=== PATIENT | female | born 1955 | race Caucasian/White ===

== ENCOUNTER → 2018-03-10 | Outpatient (CLI) | payer OTHER ==
--- NOTE | 2018-03-19 08:20 | Diagnostic Imaging Report ---
#[id number] - MGSCRBIL #BILATERAL DIGITAL SCREENING MAMMOGRAM WITH CAD: 03/10/2018 CLINICAL: Routine screening. No prior exams were available for comparison. Current study contains 7 films. The tissue of both breasts is predominantly fatty. Current study was also evaluated with a Computer Aided Detection (CAD) system. There is a possible oval mass in the left breast at 12 o'clock anterior depth. This is highlighted by CAD analysis on the CC view. Bengin calcifications in both breast are noted. Scar marker on the right breast. No other significant masses, calcifications, or other findings are seen in either breast. IMPRESSION: INCOMPLETE: NEEDS ADDITIONAL IMAGING EVALUATION The possible oval mass in the left breast is indeterminate. Additional views with possible ultrasound are recommended. The patient will be contacted by the Mammography Department to schedule this appointment. Manuel Silveira Jr., D.O. cw/:03/18/2018 10:46:18 Residential Program Worker: Dorina VILLEGAS)(Gustavo), [facility] letter sent: Additional Imaging Needed Mammogram BI-RADS: 0 Indeterminate
== END ==
LOC: MAMMO 13:34
PROVIDERS: ATTEND Internal Medicine
DX: Z12.31 Encounter for screening mammogram for malignant neoplasm of breast (principal)
CPT/HCPCS: 77067

== ENCOUNTER → 2018-05-19 | Outpatient (CLI) | payer MEDICARE, OTHER ==
--- NOTE | 2018-05-20 08:47 | Diagnostic Imaging Report ---
#[id number] - MGDXLT #UNILATERAL LEFT DIGITAL DIAGNOSTIC MAMMOGRAM WITH SPOT COMPRESSION: 05/19/2018 Comparison is made to exam dated: 03/10/2018 mammogram - [facility]. The tissue of the left breast is predominantly fatty. No significant masses, calcifications, or other findings are seen in the breast. Small irregular nodule in the left breast at the 12 o'clock position resembles a lymph node and is probably benign. Focused ultrasound did not demonstrate an associated abnormality. IMPRESSION: PROBABLY BENIGN A follow-up mammogram in 6 months is recommended to demonstrate stability. The patient was notified of the need for followup mammogram. Manuel Silveira Jr., D.O. cw/:05/19/2018 16:31:36 Sales Person: Dorina DUCKWORTH(Lavonne)(M), [facility] letter sent: Followup Recommended Mammogram BI-RADS: 3 Probably benign
--- NOTE | 2018-05-20 08:47 | Diagnostic Imaging Report ---
#[id number] - USBRELIMLT ULTRASOUND OF THE LEFT BREAST : 05/19/2018 Comparison is made to exams dated: 05/19/2018 mammogram and 03/10/2018 mammogram - [facility]. Color flow and real-time ultrasound were performed on the left breast. No lymph node, cyst or mass that would correspond to the mammographic finding was identified while scanning from 9 to 3 o'clock. IMPRESSION: PROBABLY BENIGN - FOLLOW-UP RECOMMENDED A follow-up mammogram in 6 months is recommended to demonstrate stability. The patient has been or will be contacted. Manuel Silveira Jr., D.O. cw/:05/19/2018 16:28:57 Rn Lvn: Loretta Hernandez RDMS, [facility] letter sent: Followup Recommended Ultrasound BI-RADS: 3 Probably benign
== END ==
LOC: MAMMO 14:53
PROVIDERS: ATTEND Internal Medicine
DX: N63.20 Unspecified lump in the left breast, unspecified quadrant (principal)

== ENCOUNTER → 2018-12-22 | Outpatient (CLI) | payer MEDICARE, OTHER ==
--- NOTE | 2018-12-23 09:13 | Diagnostic Imaging Report ---
#[id number] - MGDXBIL #BILATERAL DIGITAL DIAGNOSTIC MAMMOGRAM WITH CAD SHORT-TERM FOLLOW-UP: 12/22/2018 Comparison is made to exams dated: 05/19/2018 ultrasound, 05/19/2018 mammogram and 03/10/2018 mammogram - [facility]. Current study contains 8 films. The tissue of both breasts is predominantly fatty. Current study was also evaluated with a Computer Aided Detection (CAD) system. There is a stable 8 mm density in the left breast at 12 o'clock anterior depth. No other significant masses, calcifications, or other findings are seen in either breast. IMPRESSION: PROBABLY BENIGN The stable 8 mm density in the left breast is probably benign. A follow-up mammogram in 6 months is recommended to demonstrate stability. The patient has been or will be notified of the results. CLARE DIAS M.D. ct/penrad:12/22/2018 16:11:37 Spare Person: Dorina DUCKWORTH(Lavonne)(Gustavo), [facility] letter sent: Followup Recommended Mammogram BI-RADS: 3 Probably benign
--- NOTE | 2018-12-23 09:13 | Diagnostic Imaging Report ---
#[id number] - USBRELIMLT ULTRASOUND OF THE LEFT BREAST : 12/22/2018 Comparison is made to exams dated: 12/22/2018 mammogram and 05/19/2018 ultrasound - [facility]. Real-time ultrasound was performed on the left breast. There are no solid or cystic masses identified. Subcentimeter echogenic areas are present which appear benign and do not appear to correspond to the mammographic finding. IMPRESSION: PROBABLY BENIGN - FOLLOW-UP RECOMMENDED A follow-up mammogram in 6 months is recommended to demonstrate stability. Findings were discussed with the patient. The patient has been or will be contacted. CLARE DIAS M.D. ct/:12/22/2018 16:16:00 Rehab Trainer: DEYVI COLÓN RDNY, [facility] letter sent: Followup Recommended Ultrasound BI-RADS: 3 Probably benign
== END ==
LOC: MAMMO 12:53
PROVIDERS: ATTEND Internal Medicine
DX: Z09 Encounter for follow-up examination after completed treatment for conditions other than malignant neoplasm (principal); R92.8 Other abnormal and inconclusive findings on diagnostic imaging of breast
CPT/HCPCS: 77066

== ENCOUNTER → 2020-05-04 | Outpatient (CLI) | payer MEDICARE, OTHER | LOC: MAMMO 10:44 | PROVIDERS: ATTEND Internal Medicine | DX: Z09 Encounter for follow-up examination after completed treatment for conditions other than malignant neoplasm (principal); R92.8 Other abnormal and inconclusive findings on diagnostic imaging of breast | CPT/HCPCS: 77066 ==